=== PATIENT | female | born 1985 | race Two or more races ===

== ENCOUNTER 2018-11-27 12:30 | Inpatient (IN) | payer OTHER ==
[~2018-11-27] VITALS: Ht 172.7 cm; Wt 112.0 kg
[2018-11-27] VITALS (10 sets, daily range): BP systolic 104–138; BP diastolic 55–78
[~2018-11-27 12:30] MED LIST: ADVI200C5 PO; FISH500C PO; IRON18TA2 PO; MAPA500T2 PO; OMEP40CA2 PO; PRENTAB55 PO; RANI15TA PO; TUMS500C PO; ZANT150T15 PO; ZOLO100T PO
[2018-11-27] MEDS ORDERED: LACTATED RINGER'S 1000 ML IV STA (13:09)
[2018-11-27] MEDS ORDERED: PENICILLIN G POTASSIUM IV 5 MU in D5W MINI-BAG PLUS 100 ML IV STA (13:09)
[2018-11-27] MEDS ORDERED: LR 1,000 ML IV SCH ×2 (13:09→21:38)
[2018-11-27 13:54] LABS: HEMATOCRIT 30.8 % (36.0-47.0); HEMOGLOBIN 10.5 g/dl (12.0-15.5); MEAN CORPUSCULAR HEMOGLOBIN 30.4 pg (27.0-33.0); MEAN CORPUSCULAR HGB CONC 34.1 g/dl (32.0-36.5); MEAN CORPUSCULAR VOLUME 89.3 fl (80.0-96.0); PLATELET COUNT, AUTOMATED 211 10^3/uL (150-450); RED BLOOD COUNT 3.45 10^6/uL (4.00-5.40); WHITE BLOOD COUNT 8.7 10^3/uL (4.0-10.0)
[2018-11-27] MEDS: miSOPROStol 50 MCG 1/2 TAB (S0191) PO PRN ×2 (14:04→18:23)
[2018-11-27] MEDS: PENICILLIN G POTASSIUM IV 2.5 MU in APPROPRIATE DILUENT 1 EA IV SCH ×2 (18:26→22:43)
--- NOTE | 2018-11-27 21:26 | HPEPDOC ---
Obstetrical History & Physical General Date of Admission Nov 27, 2018 at 12:56 History of Present Illness late entry 32 y/o at 39+0 with known poly dx'd in OCT. Pos FM. No LOF/VB/ctx's. Preg c/b CF carrier (husb neg), worsening varicosities, poly but no DM and a nl anatomy scan, Right side minimal hydronephrosis, GBS unk (pending but with prior 2 children was GBS pos). Chief Complaint: Induction of labor Information Provided By: Patient Care Care: Good Care Dating Final EDC by: LMP, 1st trimester (US) Past Medical History Past Obstetrical History : Type of Delivery: Spontaneous Vaginal Del. 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 Past Medical History Surgical History: Appendectomy, [place] teeth Family History Significant Family History: No pertinent family hx Social History Marital Status: Family situation: Spouse/partner home Psychosocial History: No pertinent psych hx * Smoker: non-smoker Alcohol: rarely Drugs: denies Abuse Violence Screening Have you been hit/kicked/slapp: No Have you been sexually assault: No Imunizations Tdap status: current Influenza Status: current Allergies Coded Allergies: Codeine (Verified Adverse Reaction, Intermediate, TACHYCARDIA, 11/27/18) Medications Scheduled Fish Oil (Fish Oil) 500 Mg Cap, 500 MG PO DAILY Multivitamins/ ( 19) 1 Tab Tab, 1 TAB PO DAILY Omeprazole (Omeprazole) 40 Mg Cap, 20 MG PO DAILY Ranitidine HCl (Zantac) 150 Mg Tab, 1 TAB PO BID Sertraline Hcl (Zoloft) 100 Mg Tab, 100 MG PO DAILY Scheduled PRN Acetaminophen (Mapap) 500 Mg Tab, 1,000 MG PO Q6H PRN for PAIN Physical Examination Physical Examination GENERAL: Alert and oriented times three. ABDOMEN: Gravid and non-tender to touch. FETUS: Is vertex (VTX) by sterile vaginal examination (SVE), 4/80/-2/vtx well applied EXTREMITIES: No edema. Vital Signs/I&O Vital Signs Date Time Temp Pulse Resp B/P (MAP) Pulse Ox O2 Delivery O2 Flow Rate FiO2 11/27/18 19:14 98.0 81 18 123/71 (88) Laboratory Data 24H LABS Laboratory Tests 2 11/27/18 12:48: Serology Scanned Report Hepatitis B Testing 11/27/18 13:36: Nucleated Red Blood Cells % (auto) 0.0, Syphilis Serology NONREACTIVE CBC/BMP Laboratory Tests 11/27/18 13:36 Red Blood Count 3.45 L, Mean Corpuscular Volume 89.3, Mean Corpuscular Hemo globin 30.4, Mean Corpuscular Hemoglobin Concent 34.1, Red Cell Distribution Width 15.2 H Urine Culture: Contaminated Pertinent Laboratoy Data Blood Type: O+ RBC Antibody Screen: Negative HIV: Negative Hepatitis B: Negative Hepatitis C: Unknown Rapid Plasma Reagin: Nonreactive Rubella: Immune Varicella: Immune Chlamydia/Gonorrhea: Negative Group B Streptococcus: Unknown Cystic Fibrosis: Positive (husb neg) Glucose Tolerance Test: 90 Anatomy Ultrasound Placenta Location: Posterior Normal Anatomy: No (poly and r minimal hydronephrosis) Placenta Previa: No Assessment Variability: Moderate Accelerations: Positive Decelerations: None Tocometer Contractions: Yes Frequency: regular Duration: greater than 60 seconds Strength: palpated as moderate Assessment/Plan Assessment Active labor Plan Admit and orient. Senior Sales Manager and consent. Diet: clears Group B Streptococcus (GBS) neg Labs and intravenous (IV) per unit protocol. Counseled on Pitocin and augmentation of labor (IOL) as needed.. Lactated Ringers (LR): Bolus 1000 mL prior to epidural if desires one, then at 125 mL/hr. Anticipate normal spontaneous delivery () C-S as appropriate. Sessions MD CHAVEZ,ALESSANDRA Loomis MD Nov 27, 2018 21:26
--- NOTE | 2018-11-27 21:38 | IPNPDOC ---
Text Note Date of Service The patient was seen on 11/27/18. NOTE Now s/p 2 doses miso, PCN adeq for GBS Cx /80/-3/vtx still ballotable Cook balloon 60U/40V placed w/o difficulty Doing well, will transition to pitocin in 1 hr, check 1-2 hrs after balloon out Sessions VS,Jamil, I+O VS, Jamil I+O Laboratory Tests 11/27/18 13:36 Red Blood Count 3.45 L, Mean Corpuscular Volume 89.3, Mean Corpuscular Hemoglobin 30.4, Mean Corpuscular Hemoglobin Concent 34.1, Red Cell Distribution Width 15.2 H Vital Signs Date Time Temp Pulse Resp B/P (MAP) Pulse Ox O2 Delivery O2 Flow Rate FiO2 11/27/18 19:14 98.0 81 18 123/71 (88) SESSIONS,ALESSANDRA Loomis MD Nov 27, 2018 21:38
[2018-11-27] MEDS ORDERED: OXYTOCIN DRIP 30 UNITS in APPROPRIATE DILUENT 1 EA IV SCH (21:45)
[2018-11-28] VITALS (25 sets, daily range): BP systolic 108–155; BP diastolic 56–95
[2018-11-28] MEDS: PENICILLIN G POTASSIUM IV 2.5 MU in APPROPRIATE DILUENT 1 EA IV SCH (02:56)
[2018-11-28] MEDS ORDERED: FENTANYL 2MCG/ML ROPIVACAINE 0.2% IN 0.9% NACL 100ML IVBAG As Ordered ONE (03:06)
--- NOTE | 2018-11-28 04:22 | IPNPDOC ---
Text Note Date of Service The patient was seen on 11/28/18. NOTE FB came out several hrs ago, pain worsening wanted an epidural Now s/p epidural and SROM with sitting up. Cx /0 to -1, clr fluid Recheck in 2 hrs, sooner prn Sessions VS,Jamil, I+O VSJamil I+O Laboratory Tests 11/27/18 13:36 Red Blood Count 3.45 L, Mean Corpuscular Volume 89.3, Mean Corpuscular Hemoglobin 30.4, Mean Corpuscular Hemoglobin Concent 34.1, Red Cell Distribution Width 15.2 H Vital Signs Date Time Temp Pulse Resp B/P (MAP) Pulse Ox O2 Delivery O2 Flow Rate FiO2 11/28/18 00:46 81 18 108/56 (73) 11/27/18 23:46 99.9 I&O- Last 24 Hours up to 6 AM 11/28/18 06:00 Intake Total 125 ml Balance 125 ml SESSIONS,ALESSANDRA Loomis MD Nov 28, 2018 04:22
[2018-11-28] MEDS ORDERED: EPIDURAL COMMENT XX SCH (04:45)
[2018-11-28] MEDS ORDERED: FENTANYL/ROPIVACAINE/NACL BAG 100 ML EPIDURAL SCH (04:45)
[2018-11-28] MEDS ORDERED: NALOXONE INJ 0.4 MG/1 ML VIAL (J2310) IV PRN (04:45)
[2018-11-28] MEDS ORDERED: ePHEDrine SULFATE 25 MG/5 ML(5MG/ML) SYRINGE IV PRN (04:45)
[2018-11-28] MEDS ORDERED: ONDANSETRON 4MG/2ML VIAL (J2405) IV PRN (04:45)
[2018-11-28] MEDS ORDERED: diphenhydrAMINE INJ 50MG/ML VIAL (J1200) IV PRN (04:45)
[2018-11-28] MEDS ORDERED: EPIDURAL/PCA KEYS XX PRN (04:45)
[2018-11-28] MEDS ORDERED: REFRIGERATOR IV KEYS XX PRN (04:45)
[2018-11-28] MEDS ORDERED: OXYTOCIN DRIP 30 UNITS in APPROPRIATE DILUENT 1 EA IV SCH (05:38)
--- NOTE | 2018-11-28 05:43 | DNPDOC ---
[facility] Delivery Note Delivery Note DATE OF DELIVERY: [id number] PREDELIVERY DIAGNOSIS: 39 1/7 weeks' gestation and labor. POST DELIVERY DIAGNOSIS: Delivered. PROCEDURE: Spontaneous vaginal delivery CHARGER OPERATOR HELPER: Dr. Wolf ANESTHESIA: epidural ESTIMATED BLOOD LOSS: 300 mL. FINDINGS: 8 pound 11 ounce female infant, Score 8/8, nuchal cord times 1. DELIVERY SUMMARY: Progressed rapidly after SROM, called to room with invol pushing. Only 3-4 pushes and del'd the vtx and ant/post shoulders faster than I could reduce a loose cord. To abdomen in good shape. Cord C/C by FOB. Cord blood. Placenta intact, pit going 999. Fundus firm. 1st degr ML lac repaired with 3-0 vicryl in standard fashion, good cosmesis/hemostasis, uncomplicated, baby has some facial bruising from the rapid progression of her labor after SROM/epidural. ALESSANDRA Campos MD, MD Nov 28, 2018 05:43
[2018-11-28] MEDS ORDERED: METOCLOPRAMIDE INJ 10MG/2ML VIAL (J2765) IV PRN (05:45)
[2018-11-28] MEDS ORDERED: MEASLES,MUMPS,RUBELLA VACCINE INJ (MMR-II) (90707) SC SCH (05:45)
[2018-11-28] MEDS ORDERED: DIBUCAINE 1% OINTMENT 30GM TOP PRN (05:45)
[2018-11-28] MEDS ORDERED: RHOGAM 300 MCG (1500 IU) INJ (J2790) IM SCH (05:45)
[2018-11-28] MEDS: DOCUSATE SODIUM 100 MG CAP PO SCH ×2 (07:42→21:00)
[2018-11-28] MEDS: PRENATAL VITAMINS CHEWABLE TABLET PO SCH (07:42)
[2018-11-28] MEDS: OMEPRAZOLE 20 MG CAP PO SCH (08:46)
[2018-11-28] MEDS: IBUPROFEN 800 MG TAB PO PRN ×2 (09:52→18:17)
[2018-11-28] MEDS: ACETAMINOPHEN TAB 650MG DOSE (2X325MG) PO PRN ×2 (14:32→22:13)
[2018-11-28] MEDS ORDERED: CYCLOBENZAPRINE 10 MG TAB PO PRN (19:00)
[2018-11-29 05:59] VITALS: BP 113/65
--- NOTE | 2018-11-29 07:29 | DS.PDOC ---
Discharge Summary General Date of Admission Nov 27, 2018 at 12:56 Date of Discharge Nov 29, 2018 Discharge Summary HOSPITAL COURSE: Ms. Stewart is a 33 yo G4 Now P3 who underwent an uncomplicated on [id number] after being admitted for an IOL for polyhydramnios. Her course has been unremarkable. On her day of discharge she met all appropriate discharge criteria. She was ambulating, voiding, tolerating a regular diet, and her pain was well controlled with PO pain medication. Lochia has been minimal. DISCHARGE MEDICATIONS: Please see below. ALLERGIES: Please see below. PHYSICAL EXAMINATION ON DISCHARGE: VITAL SIGNS: Please see below. GENERAL: AAOX3, sitting up in bed, NAD ABDOMINAL EXAMINATION: Fundus firm at U-2. No fundal tenderness. EXTREMITIES: No edema PSYCHIATRIC EXAMINATION: Affect appropriate LABORATORY DATA: Please see below. ACTIVITY: Pelvic rest for 6 weeks. DIET: Regular DISCHARGE PLAN: [place] home DISPOSITION: discharge home on 29Nov2018. DISCHARGE INSTRUCTIONS: 1. Pelvic rest for 6 weeks. ITEMS TO FOLLOWUP ON ON OUTPATIENT: 1. appointment in 6-8 weeks. DISCHARGE CONDITION: Stable. TIME SPENT ON DISCHARGE: Greater than 20 minutes. Luisana Cortes DO Vital Signs/I&Os Vital Signs Date Time Temp Pulse Resp B/P (MAP) Pulse Ox O2 Delivery O2 Flow Rate FiO2 11/29/18 05:59 96.7 65 16 113/65 (81) I&O- Last 24 Hours up to 6 AM 11/29/18 06:00 Intake Total 4305 ml Output Total 1600 ml Balance 2705 ml Discharge Medications Scheduled Fish Oil (Fish Oil) 500 Mg Cap, 500 MG PO DAILY, (Reported) Multivitamins/ ( ) 1 Tab Tab, 1 TAB PO DAILY, (Reported) Omeprazole (Omeprazole) 40 Mg Cap, 20 MG PO DAILY, (Reported) Ranitidine HCl (Zantac) 150 Mg Tab, 1 TAB PO BID, (Reported) Sertraline Hcl (Zoloft) 100 Mg Tab, 100 MG PO DAILY, (Reported) Scheduled PRN Acetaminophen (Mapap) 500 Mg Tab, 1,000 MG PO Q6H PRN for PAIN, (Reported) Allergies Coded Allergies: Codeine (Verified Adverse Reaction, Intermediate, TACHYCARDIA, 11/27/18) LUISANA CORTES DO Nov 29, 2018 07:29
[2018-11-29] MEDS ORDERED: COLA100C5 PO (07:34)
[2018-11-29] MEDS ORDERED: IBUP-1114 PO (07:34)
[2018-11-29] MEDS ORDERED: OMEP10CASR PO (07:34)
[2018-11-29] MEDS: DOCUSATE SODIUM 100 MG CAP PO SCH (09:00)
[2018-11-29] MEDS: OMEPRAZOLE 20 MG CAP PO SCH (09:00)
[2018-11-29] MEDS: PRENATAL VITAMINS CHEWABLE TABLET PO SCH (09:00)
== END 2018-11-29 14:25 | disposition home or self-care (01) | DRG 807 ==
LOC: M LDO 12:30 → M LDI 12:56 → M OBS 11-28 09:19
PROVIDERS: ADMIT Obstetrics & Gynecology; ATTEND Obstetrics & Gynecology
PROC: 10E0XZZ Delivery of Products of Conception, External Approach (ICD-10-PCS; principal; 2018-11-28)
PROC: 0HQ9XZZ Repair Perineum Skin, External Approach (ICD-10-PCS; 2018-11-28)
DX: O40.3XX0 Polyhydramnios, third trimester, not applicable or unspecified (principal); Z37.0 Single live birth; Z3A.39 39 weeks gestation of pregnancy; O69.81X0 Labor and delivery complicated by cord around neck, without compression, not applicable or unspecified; O70.0 First degree perineal laceration during delivery; O99.824 Streptococcus B carrier state complicating childbirth

== ENCOUNTER → 2018-12-19 | Outpatient (REF) | payer OTHER ==
[~2018-12-19] MED LIST changes: +COLA100C5 PO; +IBUP-1114 PO; +OMEP10CASR PO
== END ==
LOC: M SFHCLERA 15:40
PROVIDERS: ATTEND Physician Assistant
DX: R50.9 Fever, unspecified (principal)